=== PATIENT | male | born 1975 | race Caucasian/White ===

== ENCOUNTER 2022-03-01 23:35 | Emergency (ER) | payer OTHER ==
[~2022-03-01] VITALS: Ht 177.8 cm; Wt 95.3 kg
--- NOTE | 2022-03-01 23:39 | NUR ---
Dr. Alfaro examining patient.
[2022-03-01 23:43] VITALS: BP 150/100
[2022-03-02] MEDS ORDERED: ACETAMINOPHEN EXTRA STRENGTH 500 MG TAB PO ONE (00:25)
[2022-03-02 00:30] VITALS: BP 125/84
--- NOTE | 2022-03-02 00:37 | NUR ---
Patient discharged with v/s stable. Written and verbal after care instructions given and explained. Patient verbalized understanding. Ambulatory with to car. All questions addressed prior to discharge. Advised to follow up with PMD. Addendum: 03/02/22 at 0037 by [id number] Patient discharged with v/s stable. Written and verbal after care instructions given and explained. Patient verbalized understanding. Ambulatory with to home. All questions addressed prior to discharge. Advised to follow up with PMD.
== END 2022-03-02 00:30 | disposition home or self-care (01) ==
LOC: MED 23:35
DX: T75.89XA Other specified effects of external causes, initial encounter (principal); Y08.89XA Assault by other specified means, initial encounter; Y93.89 Activity, other specified; Y92.89 Other specified places as the place of occurrence of the external cause; Y99.8 Other external cause status
CPT/HCPCS: 99282

== ENCOUNTER 2023-03-21 19:13 | Emergency (ER) | payer MEDICAID, OTHER ==
[~2023-03-21] VITALS: Ht 177.8 cm; Wt 88.5 kg
[2023-03-21 19:30] VITALS: BP 166/90; PULSE 92; RESP 18; TEMP 97.6; O2SAT 96
== END 2023-03-21 22:00 | disposition left against medical advice (07) ==
LOC: MED 19:13
DX: M79.675 Pain in left toe(s) (principal); Z53.21 Procedure and treatment not carried out due to patient leaving prior to being seen by health care provider
CPT/HCPCS: 99281

== ENCOUNTER 2023-03-23 01:20 | Emergency (ER) | payer MEDICAID ==
[~2023-03-23] VITALS: Ht 177.8 cm; Wt 90.7 kg
[2023-03-23 01:30] VITALS: BP 170/90; PULSE 101; RESP 17; TEMP 97.8; O2SAT 97
[2023-03-23] MEDS ORDERED: LOTC TP (02:49)
== END 2023-03-23 03:01 | disposition home or self-care (01) ==
LOC: MED 01:20
DX: B35.3 Tinea pedis (principal); Z79.899 Other long term (current) drug therapy
CPT/HCPCS: 99282

== ENCOUNTER 2023-08-03 12:22 | Emergency (ER) | payer MEDICAID ==
[~2023-08-03] VITALS: Ht 167.6 cm; Wt 72.6 kg
[~2023-08-03 12:22] MED LIST: LOTC TP
[2023-08-03 12:34] VITALS: BP 134/85; PULSE 84; RESP 18; TEMP 97; O2SAT 98
[2023-08-03] MEDS ORDERED: CEPH-588 PO (13:39)
[2023-08-03] MEDS ORDERED: BACI-418 TP (13:39)
[2023-08-03] MEDS ORDERED: IBUP-2213 PO (13:39)
[2023-08-03] MEDS: IBUPROFEN 600 MG TAB PO ONE (13:52)
[2023-08-03 14:26] VITALS: BP 130/80; PULSE 78; RESP 16; TEMP 98; O2SAT 99
== END 2023-08-03 14:26 | disposition home or self-care (01) ==
LOC: MED 12:22
DX: S61.217A Laceration without foreign body of left little finger without damage to nail, initial encounter (principal); R03.0 Elevated blood-pressure reading, without diagnosis of hypertension; Z79.899 Other long term (current) drug therapy; W26.8XXA Contact with other sharp object(s), not elsewhere classified, initial encounter; Y93.89 Activity, other specified; Y92.89 Other specified places as the place of occurrence of the external cause; Y99.8 Other external cause status
CPT/HCPCS: 90471; 90715; 99283